=== PATIENT | female | born 1955 | race Caucasian/White ===

== ENCOUNTER 2021-08-25 14:45 | Emergency (ER) | payer MEDICARE ==
[~2021-08-25] VITALS: Ht 162.6 cm; Wt 89.8 kg
[2021-08-25 15:00] VITALS: BP 135/75
[2021-08-25] MEDS ORDERED: IBUP-1955 PO (15:54)
[2021-08-25] MEDS ORDERED: CYCL5TAB PO (15:54)
[2021-08-25] MEDS ORDERED: IBUPROFEN 600 MG TABLET ONE (15:56)
[2021-08-25] MEDS ORDERED: CYCLOBENZAPRINE 10 MG TABLET ONE (15:56)
[2021-08-25] MEDS ORDERED: CYCLOBENZAPRINE 10 MG TABLET PO ONE (16:00)
[2021-08-25] MEDS ORDERED: IBUPROFEN 600 MG TABLET PO ONE (16:00)
--- NOTE | 2021-08-25 16:06 | NUR ---
Patient discharged to home in stable condition. Written and verbal after care instructions given. Patient verbalizes understanding of instruction.
== END 2021-08-25 16:06 | disposition home or self-care (01) ==
LOC: ER 15:00
DX: M54.12 Radiculopathy, cervical region (principal); I10 Essential (primary) hypertension; Z79.899 Other long term (current) drug therapy

== ENCOUNTER 2021-10-13 16:13 | Emergency (ER) | payer MEDICARE ==
[~2021-10-13] VITALS: Ht 167.6 cm; Wt 102.2 kg
[~2021-10-13 16:13] MED LIST: CYCL5TAB PO; IBUP-1955 PO
--- NOTE | 2021-10-13 16:53 | NUR ---
[id number] FOR LEFT KNEE PAIN 12/21 S/P [facility] TODAY. " I WAS WALKING AND MY KNEE GAVE UP". DENIES KO. ALSO, C/O RIGHT SHOULDER NUMBNESS RADIATING TO RIGHT HIP X 1 MONTH. THE PATIENT IS ALERT AND ORIENTED X4. IN ROOM AIR AND DENIES SOB. RESPIRATION REGULAR AND UNLABORED. WILL CONTINUE TO MONITOR THE PATIENT.
[2021-10-13] MEDS ORDERED: HYDROCODONE/APAP 10/325MG TABLET PO ONE (17:00)
--- NOTE | 2021-10-13 17:16 | NUR ---
[employer] DEVEL[employer] AT THE BEDSIDE
[2021-10-13] MEDS ORDERED: HYDROCODONE/APAP 10/325MG TABLET ONE (17:17)
[2021-10-13] MEDS ORDERED: HYDR-3972 PO ×2 (18:39→19:24)
[2021-10-13 19:30] VITALS: BP 140/70
--- NOTE | 2021-10-13 19:46 | NUR ---
Patient discharged to home in stable condition. Rx and Written and verbal after care instructions given. Patient verbalizes understanding of instruction.
== END 2021-10-13 19:46 | disposition home or self-care (01) ==
LOC: ER 17:03
DX: S89.82XA Other specified injuries of left lower leg, initial encounter (principal); I10 Essential (primary) hypertension; Z79.899 Other long term (current) drug therapy; X58.XXXA Exposure to other specified factors, initial encounter; Y93.89 Activity, other specified; Y92.89 Other specified places as the place of occurrence of the external cause; Y99.8 Other external cause status
CPT/HCPCS: 73552; 73564-TC